=== PATIENT | female | born 2000 | race Hispanic/Latino ===

== ENCOUNTER 2022-06-09 04:47 | Emergency (ER) | payer BC ==
[~2022-06-09] VITALS: Ht 160 cm; Wt 81.2 kg
[2022-06-09] MEDS ORDERED: TETRACAINE HCL 0.5% 4 ML OPHTH SOLN ONE (05:10)
[2022-06-09] MEDS ORDERED: FLUORESCEIN SODIUM 1 STRIP STRIP ONE (05:10)
[2022-06-09] MEDS ORDERED: IBUP-1493 PO (05:17)
[2022-06-09] MEDS ORDERED: POLY10DR22 OP (05:17)
[2022-06-09 05:25] VITALS: BP 135/92
[2022-06-09] MEDS ORDERED: FLUORESCEIN SODIUM 1 STRIP STRIP OP SCH (05:30)
== END 2022-06-09 05:30 | disposition home or self-care (01) ==
LOC: EDH 04:47
DX: H18.829 Corneal disorder due to contact lens, unspecified eye (principal); H10.9 Unspecified conjunctivitis

== ENCOUNTER 2024-12-23 03:56 | Emergency (ER) | payer BC ==
[~2024-12-23] VITALS: Ht 160 cm; Wt 73.0 kg
[~2024-12-23 03:56] MED LIST: IBUP-1493 PO; POLY10DR22 OP
[2024-12-23 04:19] LABS: IMMATURE GRANULOCYTE ABSOLUTE 0.02 K/uL (0-1); NUCLEATED RED BLOOD CELLS 0.0 % (0.0-0.19); PLATELET COUNT (AUTO) 331 K/uL (130-400); RED BLOOD CELL COUNT(AUTO) 3.82 MIL/uL (4.00-5.50); RED CELL DISTRIBUTION WIDTH 12.6 % (11.0-15.5); WHITE BLOOD COUNT (AUTO) 9.1 K/uL (4.8-10.8)
[2024-12-23 04:26] LABS: APPEARANCE,URINE CLEAR (CLEAR); GLUCOSE, URINE (UA) NEGATIVE (NEGATIVE); LEUKOCYTE ESTERASE ,URINE NEGATIVE Leu/uL (NEGATIVE); NITRATE,URINE NEGATIVE (NEGATIVE); OCCULT BLOOD,URINE +- (TRACE) (NEGATIVE)
[2024-12-23 04:31] LABS: ADD UA MICROSCOPIC YES
[2024-12-23 04:32] LABS: CREATININE 0.9 mg/dL (0.5-1.0); GLOMERULAR FILTR. RATE CALC 91.0 mL/min (>90); GLUCOSE,RANDOM 92.0 mg/dL (70-105); SODIUM SERUM 139.0 mmol/L (136-145); UREA NITROGEN, BLOOD 16.0 mg/dL (7-18)
[2024-12-23 04:33] LABS: AMPHET/METH SCREEN,URINE NEGATIVE (NEGATIVE); BARBITURATE SCREEN, URINE NEGATIVE (NEGATIVE); CANNABINOID SCREEN,URINE NEGATIVE (NEGATIVE); COCAINE SCREEN,URINE NEGATIVE (NEGATIVE); SQUAMOUS EPITHELIAL CELL,UR RARE /HPF (0-2)
--- NOTE | 2024-12-23 05:46 | EKG ---
[facility] Test Date: 2024-12-23 Test Time: 04:19:40 Pat Name: ZHOU BURNETT Department: ED Room: Gender: F [employer]er: [id number] : 2000 Requested By: WILLIAM CHOI Order Number: [id number] Reading MD: Bony Velazquez Measurements Intervals [place] Rate: 64 P: 61 NV: 132 QRS: 41 QRSD: 94 T: 38 QT: 387 QTc: 400 Interpretive Statements Sinus rhythm No previous ECG available for comparison Electronically Signed On 12-23-2024 12:22:40 CDT by Bony Velazquez Please click the below link to view image of tracing.
--- NOTE | 2024-12-23 05:53 | HMCIMG ---
EXAM: CR Chest, 1 view CLINICAL HISTORY: Chest pain. COMPARISON: None provided. FINDINGS: The lungs show no infiltrates or other acute findings. No pleural effusion or pneumothorax. The cardiomediastinal silhouette is within normal limits. No acute osseous abnormality. IMPRESSION: No acute cardiopulmonary process is evident. /[place]
--- NOTE | 2024-12-23 05:55 | ERN ---
General Chief Complaint: Chest Pain Stated Complaint: CP Time Seen by MD: 04:14 History of Present Illness Initial Comments 24 y/o female came in for chest pain. Allergies: Coded Allergies: No Known Allergies (Unverified Allergy, Unknown, 12/23/24) Home Meds Active Scripts Ibuprofen (Motrin/Advil) 800 Mg Tab, 800 MG PO TIDP PRN for PAIN, #30 TAB Prov:KILLIAN CALDERON MD 06/09/22 Polymyxin B Sulf/Trimethoprim (Polytrim Eye Drops) 10 Ml Drops, 10 ML OP 5X/DAY, #10 DROP Prov:KILLIAN CALDERON MD 06/09/22 Past Medical History Past Medical History: No Pertinent History Past Surgical History: None Family History Family History: Negative Social History Social History: Negative Female( History) LMP: Dec 18, 2024 ROS Dictation Chest pain Physical Exam General Appearance: (+) no apparent distress Orientation: (+) alert, (+) oriented x 3 Ear, Nose, Throat: (+) hearing grossly normal, (+) normal ENT inspection Neck: (+) normal inspection, (+) supple Respiratory: (+) chest non-tender, (+) lungs clear Heart: (+) regular, (+) no gallop Vascular: (+) no edema, (+) normal peripheral pulse Gastrointestinal: (+) soft, (+) non-tender, (+) no organomegaly, (+) bowel sound present Extremities: (+) normal range of motion, (+) non-tender Results Laboratory and Microbiology Lab and Micro Result Laboratory Tests Test 12/23/24 04:10 12/23/24 04:14 12/23/24 05:27 White Blood Count 9.1 K/uL (4.8-10.8) Red Blood Count 3.82 MIL/uL (4.00-5.50) L Hemoglobin 12.1 g/dL (12.0-16.0) Hematocrit 36.3 % (36-48) Mean Corpuscular Volume 95.0 fL (79-99) Mean Corpuscular Hemoglobin 31.7 pg (27.0-33.0) Mean Corpuscular Hemoglobin Concent 33.3 g/dL (32.0-36.0) Red Cell Distribution Width 12.6 % (11.0-15.5) Platelet Count 331 K/uL (130-400) Mean Platelet Volume 10.5 fL (7.5-10.5) Immature Granulocyte % (Auto) 0.2 % (0-1) Neutrophils (%) (Auto) 59.2 % (40.0-77.0) Lymphocytes (%) (Auto) 31.3 % (21.0-51.0) Monocytes (%) (Auto) 7.6 % (3.0-13.0) Eosinophils (%) (Auto) 0.8 % (0.0-8.0) Basophils (%) (Auto) 0.9 % (0.0-5.0) Neutrophils # (Auto) 5.4 K/uL (1.8-7.7) Lymphocytes # (Auto) 2.9 K/uL (1.0-4.8) Monocytes # (Auto) 0.7 K/uL (0.1-1.0) Eosinophils # (Auto) 0.07 K/uL (0.00-0.70) Basophils # (Auto) 0.08 K/uL (0.00-0.20) Absolute Immature Granulocyte (auto 0.02 K/uL (0-1) Nucleated Red Blood Cells 0.0 % (0.0-0.19) Sodium Level 139 mmol/L (136-145) Potassium Level 3.9 mmol/L (3.5-5.1) Chloride Level 103 mmol/L (101-111) Carbon Dioxide Level 27 mmol/L (21-32) Blood Urea Nitrogen 16 mg/dL (7-18) Creatinine 0.9 mg/dL (0.5-1.0) Glomerular Filtration Rate Calc 91 mL/min (>90) Random Glucose 92 mg/dL (70-105) Total Calcium 8.6 mg/dL (8.5-10.1) Troponin I High Sensitivity 8 ng/L (4-50) 8 ng/L (4-50) Serum Test, Qualitative NEGATIVE (NEGATIVE) Urine Color LIGHT-YELLOW (YELLOW) Urine Appearance CLEAR (CLEAR) Urine pH 5.5 (5.0-8.0) Urine Specific [place] 1.015 (1.001-1.031) Urine Protein NEGATIVE mg/dL (NEGATIVE) Urine Glucose (UA) NEGATIVE mg/dL (NEGATIVE) Urine Ketones 10 mg/dL (NEGATIVE) H Urine Occult Blood +- (TRACE) (NEGATIVE) H Urine Nitrate NEGATIVE (NEGATIVE) Urine Bilirubin NEGATIVE mg/dL (NEGATIVE) Urine Urobilinogen 0.2 mg/dL (0.2-1.0) Urine Leukocyte Esterase NEGATIVE [place]/uL Urine RBC 0-1 /HPF (0-1) Urine WBC 2-5 /HPF (0-1) H Urine Squamous Epithelial Cells RARE /HPF (0-2) Urine Bacteria None /HPF (None Seen) Urine Opiates Screen NEGATIVE (NEGATIVE) Urine Barbiturates Screen NEGATIVE (NEGATIVE) Urine Phencyclidine Screen NEGATIVE (NEGATIVE) Urine Amphetamines Screen NEGATIVE (NEGATIVE) Urine Benzodiazepines Screen NEGATIVE (NEGATIVE) Urine Cocaine Screen NEGATIVE (NEGATIVE) Urine Marijuana (THC) Screen NEGATIVE (NEGATIVE) MDM Pt to follow up with primary care physician ED Course Orders Procedure Category Date Status Time Cbc With Differential LAB 12/23/24 Complete 03:59 Basic Metabolic Panel LAB 12/23/24 Complete 03:59 Troponin I High LAB 12/23/24 Complete Sensitivity 03:59 Urinalysis Profile LAB 12/23/24 Complete 03:59 Drug Screen Urine LAB 12/23/24 Complete 03:59 Testing, LAB 12/23/24 Complete Serum Hcg 03:59 Chest 1vw RAD 12/23/24 Taken 03:59 12 Lead Ekg Tracing- EKG 12/23/24 Complete Technical 03:59 Troponin I High LAB 12/23/24 Complete Sensitivity 05:11 Vital Signs Date Time Temp Pulse Resp B/P (MAP) Pulse Ox O2 Delivery O2 Flow Rate FiO2 12/23/24 03:57 97.2 74 16 142/81 100 Room Air DX & DISP Disposition: Discharge Departure Impression: Primary Impression: Chest pain Condition: Stable Referrals: SELF,REFERRAL (PCP) TERE WILLOUGHBY MD SY,WILLIAM GRAHAM MD, MD Dec 23, 2024 05:55
[2024-12-23 05:57] VITALS: BP 136/78; PULSE 76; RESP 18; TEMP 98.3; O2SAT 100
== END 2024-12-23 06:05 | disposition home or self-care (01) ==
LOC: EDH 03:56
DX: R07.9 Chest pain, unspecified (principal)
CPT/HCPCS: 36415; 71045; 80048; 80305; 81001; 84484; 84703; 85025; 93005; 99284